=== PATIENT | female | born 1935 | race Caucasian/White ===

== ENCOUNTER 2017-06-15 23:50 | Inpatient (IN) ==
--- NOTE | 2017-06-15 23:59 | Emergency Department Note ---
Disposition Clinical Impression: Rigors UTI (urinary tract infection) Qualifiers: Urinary tract infection type: acute cystitis Hematuria presence: without hematuria Qualified Code(s): N30.00 - Acute cystitis without hematuria Fever Qualifiers: Fever type: unspecified Qualified Code(s): R50.9 - Fever, unspecified Disposition: Admitted As Inpatient Condition: Good Time of Disposition: 01:59 General Adult HPI - General Chief complaint: ED General Medical Stated complaint: muscle spasm Time Seen by Provider: 06/15/17 23:54 Source: patient, EMS Limitations: no limitations Nursing Notes Reviewed: Yes Vital Signs Reviewed: Yes - History of Present Illness HPI Narrative: Patient is an 81-year-old female presents to emergency department via EMS for shaking. She states that she was recently diagnosed with a urinary tract infection at her doctor's office today and was given Macrobid. She states that she has taken 2 doses. She took one dose at 2100 and then went to bed. She states that she then woke up shaking. Patient states that she had concern that it could be related to the Macrobid. Patient states that she has also been battling flu. - Related Data Home Medications Medication Instructions Recorded Confirmed Amlodipine Besylate [Amlodipine 10 mg PO DAILY 04/29/17 06/16/17 Besylate] Atorvastatin [Lipitor] 40 mg PO HS 04/29/17 06/16/17 Cyclobenzaprine [Flexeril] 5 mg PO HS PRN 04/29/17 06/16/17 Ferrous Sulfate 325 mg PO DAILY 04/29/17 06/16/17 Indapamide [Lozol] 1.25 mg PO DAILY 04/29/17 06/16/17 Loratadine [Allergy Relief] 10 mg PO DAILY 04/29/17 06/16/17 Losartan Potassium [Cozaar] 100 mg PO DAILY 04/29/17 06/16/17 Metformin HCl [Metformin HCl ER] 500 mg PO BID 04/29/17 06/16/17 Metoprolol XL (24 HR) Succ [Toprol 100 mg PO BID 04/29/17 06/16/17 XL] Omeprazole [PriLOSEC] 20 mg PO BID 04/29/17 06/16/17 Potassium Chloride 20 meq PO DAILY 04/29/17 06/16/17 Venlafaxine HCl [Venlafaxine HCl 75 mg PO DAILY 04/29/17 06/16/17 ER] Allergies Allergy/AdvReac Type Severity Reaction Status Date / Time TYRONE Inhibitors Allergy Swelling Verified 04/29/17 11:31 of Lip/Tongue/Throat Amoxicillin Allergy Itching Verified 04/29/17 11:31 codeine Allergy Vomiting Verified 04/29/17 11:31 enalapril Allergy Anaphylaxis Verified 04/29/17 11:31 nitrofurantoin Allergy Rash Verified 04/29/17 11:31 [From Macrobid] Sulfa (Sulfonamide Allergy Rash Verified 04/29/17 11:31 Antibiotics) All systems ED: reviewed and negative except as stated. Constitutional: Reports: other (Shaking) Cardiovascular: Denies: chest pain Respiratory: Denies: dyspnea Past Medical History - Past Medical History Medical history: Reports: atrial fibrillation, diabetes, hyperlipidemia, hypertension, other Surgical history: Reports: cholecystectomy, hysterectomy, pacemaker/AICD Psychiatric history: Reports: no psych history - Social History Smoking Status: Never smoker Smokeless Tobacco Status: No Alcohol use: Reports: occasionally Drug use: Reports: none Physical Exam - General Limitations: no limitations General appearance: alert, in no apparent distress - Head Head exam: atraumatic, normocephalic - Eye Eye exam: Present: normal appearance, EOMI - Neck Neck exam: Present: normal inspection, full ROM, trachea midline - Respiratory Respiratory exam: Present: normal lung sounds bilaterally. Absent: respiratory distress, wheezes - Cardiovascular Cardiovascular exam: Present: regular rate, normal rhythm, normal heart sounds, +S1, +S2 - Abdominal Exam Abdominal exam: Present: soft, Non-Tender, normal bowel sounds - Neurological Exam Neurological exam: Present: alert, oriented X3 - Psychiatric Psychiatric exam: Present: normal affect, normal mood - Skin Skin exam: Present: warm, dry, intact Course Vital Signs Temperature 100.7 F H 06/15/17 23:53 Pulse Rate 129 06/15/17 23:53 Respiratory Rate 20 06/15/17 23:53 Blood Pressure 145/103 06/15/17 23:53 O2 Sat by Pulse Oximetry 99 06/15/17 23:53 Temperature 99.1 F 06/19/17 07:39 Pulse Rate 80 06/19/17 07:39 Respiratory Rate 16 06/19/17 07:39 Blood Pressure 147/76 06/19/17 07:39 O2 Sat by Pulse Oximetry 96 06/19/17 07:39 Oxygen Delivery Oxygen Delivery Room Air Medical Decision Making - MDM Narrative Medical decision making narrative: Due the patient having shaking rigors and recent urinary tract infection will do a septic workup on this patient. His chest x-ray showed no acute process. There is no ischemic changes noted on the EKG. Analysis is positive for leukocyte esterase. Patient did have a white count of 14.6.. The patient will be started on a dose of Rocephin here in the emergency department. The patient has a troponin of 0.20. The patient denies any active chest pain and there were no ischemic changes on EKG. The patient will need to be admitted to the hospital for further evaluation and management. I have called and spoken with the hospitals name except of the patient to their service. The patient will be admitted at this time. - Lab Data Lab results reviewed: Yes I reviewed the patient's lab results. Result diagrams: 06/18/17 14:36 06/18/17 14:36 Lab Results 06/15/17 06/16/17 06/16/17 Range/Units 23:51 00:13 00:13 WBC 14.6 H (4.3-11.1) K/mcL RBC 4.53 (3.82-4.97) M/mcL Hgb 11.4 L (11.5-15.4) g/dL Hct 37.8 (35.3-44.9) % MCV 83.4 (83.0-100.0) fL MCH 25.2 L (28.0-33.3) pg MCHC 30.2 L (31.6-35.5) g/dL RDW 15.8 H (11.5-14.5) % Plt Count 369 (140-400) K/mcL MPV 10.0 (9.4-12.4) fL Immature Gran % 0.4 (0-4) % Seg Neutrophils % 88.2 % Lymphocytes % 7.3 % Monocytes % 3.8 % Eosinophils % 0.2 % Basophils % 0.1 % Neutrophils # 12.9 H (1.6-8.9) K/mcL Lymphocytes # 1.1 (0.6-4.6) K/mcL Monocytes # 0.6 (0.0-1.3) K/mcL Eosinophils # 0.0 (0.0-0.6) K/mcL Basophils # 0.0 (0.0-0.2) K/mcL PT 12.2 H (9.4-12.1) Seconds INR 1.1 APTT 26.4 (26.0-36.0) Seconds Sodium (136-145) mEq/L Potassium (3.5-5.1) mEq/L Chloride (98-107) mEq/L Carbon Dioxide (23-29) mEq/L BUN (8-23) mg/dL Creatinine (0.60-1.20) mg/dL Est GFR ( Amer) (> 60) Est GFR (Non-Af Amer) (> 60) BUN/Creatinine Ratio (6-26) Glucose (70-105) mg/dL Calculated Osmolality (280-300) Lactic Acid (0.5-2.2) mmol/L Calcium (8.6-10.3) mg/dL Phosphorus (2.7-4.5) mg/dL Magnesium (1.6-2.6) mg/dL Total Bilirubin (0.3-1.0) mg/dL Direct Bilirubin (0.0-0.2) mg/dL Indirect Bilirubin (0.0-1.2) mg/dL AST (13-39) Units/L ALT (7-52) Units/L Alkaline Phosphatase (34-104) Units/L Troponin I (< 0.04) ng/mL Serum Total Protein (6.4-8.9) g/dL Albumin (3.5-5.7) g/dL Globulin (2.4-3.5) g/dL Albumin/Globulin Ratio (1.1-2.2) Urine Color Yellow (Yellow) Urine Clarity Clear (Clear) Urine pH 6.5 (5.0-8.0) pH Units Ur Specific [place] 1.009 L (1.010-1.025) Urine Protein 100 H (Neg-Trace) mg/dL Urine Glucose (UA) Normal (Normal) mg/dL Urine Ketones Negative (Negative) mg/dL Urine Blood Small H (Negative) Urine Nitrite Negative (Negative) Urine Bilirubin Negative (Negative) Urine Urobilinogen Normal (Normal) mg/dL Ur Leukocyte Esterase Small H (Negative) Urine Microscopic RBC 0-3 (0-3) per hpf Urine Microscopic WBC 30-50 H (0-3) per hpf Ur Squamous Epith Cells Many H (None-Few) per lpf Urine Bacteria None Seen (None-Few) per hpf Hyaline Casts None Seen (None-Few) per lpf Ur Culture Indicated? NO. (NO) 06/16/17 06/16/17 06/16/17 Range/Units 00:13 00:13 00:13 WBC (4.3-11.1) K/mcL RBC (3.82-4.97) M/mcL Hgb (11.5-15.4) g/dL Hct (35.3-44.9) % MCV (83.0-100.0) fL MCH (28.0-33.3) pg MCHC (31.6-35.5) g/dL RDW (11.5-14.5) % Plt Count (140-400) K/mcL MPV (9.4-12.4) fL Immature Gran % (0-4) % Seg Neutrophils % % Lymphocytes % % Monocytes % % Eosinophils % % Basophils % % Neutrophils # (1.6-8.9) K/mcL Lymphocytes # (0.6-4.6) K/mcL Monocytes # (0.0-1.3) K/mcL Eosinophils # (0.0-0.6) K/mcL Basophils # (0.0-0.2) K/mcL PT (9.4-12.1) Seconds INR APTT (26.0-36.0) Seconds Sodium 136 (136-145) mEq/L Potassium 3.8 (3.5-5.1) mEq/L Chloride 100 (98-107) mEq/L Carbon Dioxide 25 (23-29) mEq/L BUN 17 (8-23) mg/dL Creatinine 1.03 (0.60-1.20) mg/dL Est GFR ( Amer) > 60 (> 60) Est GFR (Non-Af Amer) 52 L (> 60) BUN/Creatinine Ratio 17 (6-26) Glucose 133 H (70-105) mg/dL Calculated Osmolality 285 (280-300) Lactic Acid 3.2 H (0.5-2.2) mmol/L Calcium 8.9 (8.6-10.3) mg/dL Phosphorus 3.8 (2.7-4.5) mg/dL Magnesium 1.7 (1.6-2.6) mg/dL Total Bilirubin 0.3 (0.3-1.0) mg/dL Direct Bilirubin 0.1 (0.0-0.2) mg/dL Indirect Bilirubin 0.2 (0.0-1.2) mg/dL AST 36 (13-39) Units/L ALT 23 (7-52) Units/L Alkaline Phosphatase 100 (34-104) Units/L Troponin I 0.20 H* (< 0.04) ng/mL Serum Total Protein 7.6 (6.4-8.9) g/dL Albumin 3.5 (3.5-5.7) g/dL Globulin 4.1 H (2.4-3.5) g/dL Albumin/Globulin Ratio 0.9 L (1.1-2.2) Urine Color (Yellow) Urine Clarity (Clear) Urine pH (5.0-8.0) pH Units Ur Specific [place] (1.010-1.025) Urine Protein (Neg-Trace) mg/dL Urine Glucose (UA) (Normal) mg/dL Urine Ketones (Negative) mg/dL Urine Blood (Negative) Urine Nitrite (Negative) Urine Bilirubin (Negative) Urine Urobilinogen (Normal) mg/dL Ur Leukocyte Esterase (Negative) Urine Microscopic RBC (0-3) per hpf Urine Microscopic WBC (0-3) per hpf Ur Squamous Epith Cells (None-Few) per lpf Urine Bacteria (None-Few) per hpf Hyaline Casts (None-Few) per lpf Ur Culture Indicated? (NO) - Radiology Data Radiology results reviewed: Yes I reviewed the patient's radiology results. - EKG Data EKG #1 EKG attestation: Yes I reviewed and interpreted this EKG. EKG results narrative: EKG showed a sinus tachycardia at a rate of 101 bpm, MT interval of 174, curious rash and of 88, QTC of 387. This was compared to previous EKG on Attestation Statement - Attestation Attestation: I examined this patient and my medical decision-making was reviewed with the Resident Physician. I agree with the documented findings, disposition and treatment plan as described except to the extent set forth below. Patient presents to the ED was shaking. She called EMS complaining of muscle spasms. Briefly diagnosed with UTI and taken a couple doses of Macrobid. Does not think she has had a fever. No vomiting. On examination the patient has Conrado's. Abdomen soft. Lungs clear. Plan. Patient is febrile. Septic workup. Patient treated with IV antibiotics. Admitted to medicine pending blood cultures.
[2017-06-16 00:19] LABS: Bilirubin,Urine Negative (Negative); Blood,Urine Small (Negative); Clarity,Urine Clear (Clear); Color,Urine Yellow (Yellow); Glucose,Urine (UA) Normal (Normal); Ketones,Urine Negative (Negative); Leukocyte Esterase,Urine Small (Negative); Nitrite,Urine Negative (Negative); PH,Urine 6.5 pH Units (5.0-8.0); Protein,Urine 100 mg/dL (Neg-Trace); Specific Gravity,Urine 1.009 (1.010-1.025); Urobilinogen,Urine Normal (Normal)
[2017-06-16 00:26] LABS: Basophils % 0.1 %; Eosinophils % 0.2 %; Hematocrit 37.8 % (35.3-44.9); Hemoglobin 11.4 g/dL (11.5-15.4); Immature Granulocytes % 0.4 % (0-4); Lymphocytes # 1.1 K/mcL (0.6-4.6); Lymphocytes % 7.3 %; Mean Corpuscular HGB Conc 30.2 g/dL (31.6-35.5); Mean Corpuscular Hemoglobin 25.2 pg (28.0-33.3); Mean Corpuscular Volume 83.4 fL (83.0-100.0); Monocytes # 0.6 K/mcL (0.0-1.3); Monocytes % 3.8 %; Neutrophils # 12.9 K/mcL (1.6-8.9); Platelet Count 369 K/mcL (140-400); Red Blood Count 4.53 M/mcL (3.82-4.97); Red Cell Distribution Width 15.8 % (11.5-14.5); Segmented Neutrophils % 88.2 %
[2017-06-16 00:27] LABS: Bacteria,Urine None Seen per hpf (None-Few); Hyaline Casts,Urine None Seen per lpf (None-Few); RBC,Urine 0-3 per hpf (0-3); Squamous Epithelial Cell,Urine Many per lpf (None-Few); WBC,Urine 30-50 per hpf (0-3)
[2017-06-16] MEDS ORDERED: Ondansetron 4 MG/2 ML VIAL IVP ONE ×3 (00:32→02:59)
[2017-06-16 00:35] LABS: INR 1.1; Prothrombin Time 12.2 Seconds (9.4-12.1)
[2017-06-16 00:37] LABS: Activated Partial Thrombo Time 26.4 Seconds (26.0-36.0)
[2017-06-16 00:53] LABS: Alanine Aminotransferase 23 Units/L (7-52); Albumin 3.5 g/dL (3.5-5.7); Albumin/Globulin Ratio 0.9 (1.1-2.2); Alkaline Phosphatase 100 Units/L (34-104); Aspartate Amino Transferase 36 Units/L (13-39); BUN/Creatinine Ratio 17 (6-26); Bilirubin,Direct 0.1 mg/dL (0.0-0.2); Bilirubin,Indirect 0.2 mg/dL (0.0-1.2); Bilirubin,Total 0.3 mg/dL (0.3-1.0); Blood Urea Nitrogen 17 mg/dL (8-23); Calcium 8.9 mg/dL (8.6-10.3); Carbon Dioxide 25 mEq/L (23-29); Chloride 100 mEq/L (98-107); Globulin 4.1 g/dL (2.4-3.5); Glucose 133 mg/dL (70-105); Magnesium 1.7 mg/dL (1.6-2.6); Osmolality,Calculated 285 (280-300); Phosphorous 3.8 mg/dL (2.7-4.5); Potassium 3.8 mEq/L (3.5-5.1); Sodium 136 mEq/L (136-145); Total Protein 7.6 g/dL (6.4-8.9); eGFR For African Americans > 60 (> 60); eGFR For Non-African Americans 52 (> 60)
[2017-06-16] MEDS ORDERED: Aspirin 81 MG TAB.CHEW PO ONE (01:49)
[2017-06-16] MEDS ORDERED: cefTRIAXone 1,000 MG in Water for inj. (sterile) 20 ML 10 ML IVPB ONE (02:00)
--- NOTE | 2017-06-16 03:01 | Internal Med History&Physical ---
Date of Encounter: 06/16/17 Time of Encounter: 02:45 Assessment and Plan (1) Sepsis Current visit: Yes Status: Suspected Patient presenting with sepsis. Lactic acid elevated. Tachycardic. Febrile. Will treat with intravenous antibiotics, IV fluids. Follow culture results. Trend lactic acid. High risk for complications. Qualifiers: Sepsis type: Escherichia coli Qualified Code(s): A41.51 - Sepsis due to Escherichia coli [E. coli] (2) UTI (urinary tract infection) Current visit: Yes Status: Acute Patient presenting with dysuria. Was treated with Macrobid prior to coming to the ER. Repeat urine culture. Qualifiers: Urinary tract infection type: acute cystitis Hematuria presence: without hematuria Qualified Code(s): N30.00 - Acute cystitis without hematuria (3) Essential hypertension Current visit: Yes Status: Chronic Monitor blood pressure. Resume home medications. (4) Diabetes mellitus Current visit: Yes Status: Chronic Place patient on sliding scale insulin and diabetic diet. Monitor blood sugars. Qualifiers: Diabetes mellitus type: type 2 Diabetes mellitus complication status: without complication Diabetes mellitus correction insulin use: without rat exterminator use Qualified Code(s): E11.9 - Type 2 diabetes mellitus without complications (5) Elevated troponin Current visit: Yes Status: Acute Patient is mildly elevated troponin at 0.2. Could be related to sepsis and demand ischemia. We will trend troponins. Get 2-D echocardiogram. (6) DVT prophylaxis Current visit: Yes Status: Acute With subcutaneous heparin Internal Medicine - H&P: HPI Chief complaint: Fever, rigors, nausea Admitted From: Emergency Dept Plans for Post Hospital Care: Home History of present illness: Ms. Kate is a 81 year old female patient with a past medical history of diabetes mellitus, essential hypertension, status post permanent pacemaker presented to the ER with complaints of nausea, fever along with chills and rigors. Symptoms began 2 days back with nausea. She went to urgent care this morning and was told that she had urinary tract infection and prescribed Macrobid. She is allergic to Macrobid but did take it yesterday evening and went to bed. She woke up with rigors and decided to come to the ER here. She does continue to feel sick with nausea. She does describe mild suprapubic pain and dysuria. No cough or shortness of breath. Past Med Surg Social Fam HX - Past Medical History Attestation: Yes The following information was validated with the patient. Source: patient Medical history: atrial fibrillation, diabetes, hyperlipidemia, hypertension, other Psychiatric history: anxiety, depression - Past Surgical History Surgical History: cholecystectomy, hysterectomy, pacemaker/AICD - Social History Smoking Status: Never smoker Smokeless Tobacco Status: No Alcohol use: occasionally Drug use: none - Additional Family History Additional family history: Reviewed and found to be noncontributory at this time Internal Medicine - H&P: Meds Amlodipine Besylate [Amlodipine Besylate] 10 mg PO DAILY 04/29/17 [History] Aspirin 81 mg PO DAILY 04/29/17 [History] Atorvastatin [Lipitor] 40 mg PO HS 04/29/17 [History] Atorvastatin [Lipitor] 40 mg PO HS 04/29/17 [History] Cyclobenzaprine [Flexeril] 5 mg PO HS PRN 04/29/17 [History] Ferrous Sulfate 325 mg PO DAILY 04/29/17 [History] Indapamide [Lozol] 1.25 mg PO DAILY 04/29/17 [History] Loratadine [Allergy Relief] 10 mg PO DAILY 04/29/17 [History] Losartan Potassium [Cozaar] 100 mg PO DAILY 04/29/17 [History] Metformin HCl [Metformin HCl ER] 500 mg PO BID 04/29/17 [History] Metoprolol XL (24 HR) Succ [Toprol XL] 100 mg PO BID 04/29/17 [History] Omeprazole [PriLOSEC] 20 mg PO BID 04/29/17 [History] Potassium Chloride 20 meq PO DAILY 04/29/17 [History] Venlafaxine HCl [Venlafaxine HCl ER] 75 mg PO DAILY 04/29/17 [History] 3 Allergy/AdvReac Type Severity Reaction Status Date / Time TYRONE Inhibitors Allergy Swelling Verified 04/29/17 11:31 of Lip/Tongue/Throat Amoxicillin Allergy Itching Verified 04/29/17 11:31 codeine Allergy Vomiting Verified 04/29/17 11:31 enalapril Allergy Anaphylaxis Verified 04/29/17 11:31 nitrofurantoin Allergy Rash Verified 04/29/17 11:31 [From Macrobid] Sulfa (Sulfonamide Allergy Rash Verified 04/29/17 11:31 Antibiotics) All Systems PM: A 10-system review of systems was performed and is negative for pertinent findings except as documented above in the HPI. - Constitutional Constitutional: chills, fever(s), no night sweats - EENT Eyes: no change in vision, no discharge, no pain, no photophobia Ears: no ear discharge, no ear pain, no tinnitus Nose, mouth and throat: no dysphagia, no nasal discharge, no neck pain, no sore throat - Cardiovascular Cardiovascular ROS IM: no chest pain, no diaphoresis, no dyspnea, no lightheadedness, no palpitations, no syncope - Respiratory Respiratory: no cough, no dyspnea, no wheezing, no excessive phlegm production - Gastrointestinal Gastrointestinal: no abdominal pain, no diarrhea, no hematemesis, no hematochezia, no melena, no nausea, no vomiting - Genitourinary Genitourinary: dysuria, no change in urinary stream, no flank pain, no hematuria - Musculoskeletal Musculoskeletal ROS IM: no numbness, no tingling - Integumentary Integumentary IM: no rash, no unusual bruising - Neurological Neurological ROS: no confusion, no convulsions, no focal weakness, no numbness, no tingling, no tremor(s) - Hematologic/Lymphatic Hematologic/Lymphatic: no easy bruising - Constitutional Vitals: Temp Pulse Resp BP Pulse Ox 100.7 F H 114 18 166/75 91 06/16/17 02:40 06/16/17 02:40 06/16/17 02:40 06/16/17 02:40 06/16/17 02:40 General appearance: Present: cooperative, mild distress, A&O X 3, answers questions appropriately - Neck Neck exam general surgery: Present: supple, trachea midline. Absent: lymphadenopathy - Cardiovascular Cardiovascular exam: Present: RRR, +S1, +S2, tachycardia. Absent: diastolic murmur, gallop, rubs, systolic murmur - GI/Abdominal GI/Abdominal exam: Present: normal bowel sounds, soft, no peritoneal signs. Absent: distended, tenderness - Extremities Exam Extremities exam: Present: warm, radial pulses palpable and symmetrical. Absent : calf tenderness, cyanotic, pedal edema - Neurological Exam Neurological exam: Present: alert, oriented X3, no focal deficits. Absent: facial droop, speech deficit - Skin Skin exam: Present: dry, intact Internal Med - H&P Results - Labs CBC & Chem 7: 06/16/17 00:13 06/16/17 00:13
[2017-06-16] MEDS: 0.9 % Sodium Chloride 1,000 ML IVC SCH ×5 (03:04→13:59)
[2017-06-16] MEDS ORDERED: Dextrose Gel 15 GM/37.5 ML TUBE PO PRN ×2 (03:07)
[2017-06-16] MEDS ORDERED: *HR* Dextrose 50 % in Water (Syg) 50 ML SYRINGE IVP PRN (03:07)
[2017-06-16] MEDS ORDERED: D5% in Water 1,000 ML IVC PRN (03:07)
[2017-06-16] MEDS ORDERED: Venlafaxine XR (24 HR) 75 MG CAP.ER.24H PO SCH (03:30)
[2017-06-16 03:57] LABS: Hemoglobin A1C 5.8 %
[2017-06-16 04:38] LABS: Adenovirus Not Detected (Not Detect); Bordetella Pertussis Not Detected (Not Detect); Chlamydophila pneumoniae Not Detected (Not Detect); Coronavirus 229E Not Detected (Not Detect); Coronavirus HKU1 Not Detected (Not Detect); Coronavirus NL63 Not Detected (Not Detect); Coronavirus OC43 Not Detected (Not Detect); Human Metapneumovirus Not Detected (Not Detect); Human Rhinovirus/Enterovirus Not Detected (Not Detect); Influenza A Subtype 2009 H1 Not Detected (Not Detect); Influenza A Untypeable Not Detected (Not Detect); Influenza B Not Detected (Not Detect); Mycoplasma pneumoniae Not Detected (Not Detect); Parainfluenza Virus 1 Not Detected (Not Detect); Parainfluenza Virus 2 Not Detected (Not Detect); Parainfluenza Virus 3 Not Detected (Not Detect); Parainfluenza Virus 4 Not Detected (Not Detect); Respiratory Syncytial Virus Not Detected (Not Detect)
[2017-06-16] MEDS: *HR* Heparin 5,000 UNIT/ML VIAL SQ SCH ×2 (05:47→18:02)
[2017-06-16] MEDS ORDERED: Ondansetron 4 MG/2 ML VIAL IVP PRN (07:47)
[2017-06-16] MEDS ORDERED: Acetaminophen 650 MG RECTAL SUPP RC PRN (07:48)
[2017-06-16] MEDS ORDERED: Ondansetron 4 MG/2 ML VIAL ONE (07:49)
[2017-06-16] MEDS: Insulin LISPRO 300 UNITS/3 ML VIAL SQ SCH ×4 (08:01→22:06)
[2017-06-16] MEDS ORDERED: *HR* Promethazine 25 MG/ML VIAL ONE (09:09)
[2017-06-16] MEDS: *HR* Promethazine 25 MG/ML VIAL IVP PRN ×3 (09:20→19:44)
--- NOTE | 2017-06-16 11:03 | Internal Med Progress Note ---
Date of Encounter: 06/16/17 Time of Encounter: 09:00 - Assessment and plan (1) UTI (urinary tract infection) Current Visit: Yes Status: Acute Assessment and plan: Patient is day #1 IV Rocephin Lactic acid is normal at 1.4 She continues to have fevers and tachycardia clinically states she feels better. Blood pressure stable. Awaiting blood cultures and urine culture. Continue supportive care. IV fluids. Close monitoring. Qualifiers: Urinary tract infection type: acute cystitis Hematuria presence: without hematuria Qualified Code(s): N30.00 - Acute cystitis without hematuria (2) Sepsis Current Visit: Yes Status: Suspected Assessment and plan: See treatment as outlined above Qualifiers: Sepsis type: sepsis due to unspecified organism Qualified Code(s): A41.9 - Sepsis, unspecified organism (3) Essential hypertension Current Visit: Yes Status: Chronic Assessment and plan: Blood pressure is currently controlled. Monitor. She is not on any antihypertensives. (4) Diabetes mellitus Current Visit: Yes Status: Chronic Assessment and plan: Blood sugars remain under reasonable control. Continue corrective insulin as necessary. A1c 5.8. Qualifiers: Diabetes mellitus type: type 2 Diabetes mellitus complication status: without complication Diabetes mellitus ferry terminal agent insulin use: without retirement use Qualified Code(s): E11.9 - Type 2 diabetes mellitus without complications (5) Elevated troponin Current Visit: Yes Status: Acute Assessment and plan: Troponins are elevated. Patient without chest pain. No history of coronary artery disease. I will place her on aspirin. If continue to rise will consult cardiology. This may be demand ischemia. An echocardiogram is ordered. Repeat EKG ordered. (6) DVT prophylaxis Current Visit: Yes Status: Acute Assessment and plan: Lovenox Sub Q - Time Spent With Patient 25 - 35 minutes - Subjective Interval history: My partners earlier history and physical is appreciated: CC: Weakness HPI:Ms. Kate is a 81 year old female patient with a past medical history of diabetes mellitus, essential hypertension, status post permanent pacemaker presented to the ER with complaints of nausea, fever along with chills and rigors. Symptoms began 2 days back with nausea. She went to urgent care this morning and was told that she had urinary tract infection and prescribed Macrobid. She is allergic to Macrobid but did take it yesterday evening and went to bed. She woke up with rigors and decided to come to the ER here. She does continue to feel sick with nausea. She does describe mild suprapubic pain and dysuria. No cough or shortness of breath. 06/16: Patient states she feels somewhat better today. She continues to have nausea and is requesting a different antiemetic. She continues to experience fevers and chills he denies any abdominal pain or dysuria. No dysuria. No chest pain or shortness of breath. She is day 1 of IV Rocephin, and continues with IV fluids for sepsis due to urinary tract infection. - Constitutional Vitals: Temp Pulse Resp BP Pulse Ox 100.9 F H 112 18 144/86 92 06/16/17 08:51 06/16/17 07:21 06/16/17 07:21 06/16/17 07:21 06/16/17 10:23 General appearance: Present: cooperative, mild distress, A&O X 3, answers questions appropriately Exam: Pt is ill-appearing - Head Head exam: Present: atraumatic, normocephalic - Eye Eye exam: Present: conjuntiva pink, sclera anicteric - ENT ENT exam: Present: mucous membranes dry - Neck Neck exam general surgery: Present: supple, trachea midline. Absent: lymphadenopathy - Respiratory Respiratory exam: Present: CTAB. Absent: accessory muscle use, rales, rhonchi, wheezes - Cardiovascular Cardiovascular exam: Present: +S1, +S2, tachycardia. Absent: diastolic murmur, gallop, rubs, systolic murmur - GI/Abdominal GI/Abdominal exam: Present: normal bowel sounds, soft, no peritoneal signs. Absent: distended, tenderness - Extremities Exam Extremities exam: Present: warm, radial pulses palpable and symmetrical. Absent : calf tenderness, cyanotic, pedal edema - Neurological Exam Neurological exam: Present: CN II-XII intact, oriented X3, no focal deficits. Absent: pronater drift, facial droop, speech deficit - Skin Skin exam: Present: dry, intact, warm (Capillary refill less than 2.5 second) Internal Medicine: Result - Labs CBC & Chem 7: 06/16/17 00:13 06/16/17 00:13 Labs: Cardiac Enzymes 06/16/17 Range/Units 03:22 Troponin I 0.30 H* (< 0.04) ng/mL - ABG Interpretation ABG results: PT/INR, D-dimer PT 12.2 Seconds (9.4-12.1) H 06/16/17 00:13 Consult Discharge Plan - Plan Referrals: Shmuel Leggett MD [Primary Care Provider] -
[2017-06-16] MEDS: Aspirin 81 MG TAB.CHEW PO SCH (12:32)
[2017-06-16] MEDS: Venlafaxine XR (24 HR) 75 MG CAP.ER.24H PO SCH (12:32)
[2017-06-16] MEDS: Acetaminophen 325 MG TABLET PO PRN ×2 (13:58→19:44)
[2017-06-16] MEDS ORDERED: *HR* Promethazine 25 MG/ML VIAL IVP ONE (16:18)
[2017-06-16] MEDS ORDERED: Metoclopramide 10 MG/2 ML VIAL IVP PRN (18:00)
[2017-06-17] MEDS: 0.9 % Sodium Chloride 1,000 ML IVC SCH ×2 (00:57→11:57)
[2017-06-17] MEDS: *HR* Promethazine 25 MG/ML VIAL IVP PRN ×3 (02:40→18:10)
[2017-06-17] MEDS: Acetaminophen 325 MG TABLET PO PRN ×2 (02:43→09:51)
[2017-06-17] MEDS: cefTRIAXone 2,000 MG in Water for inj. (sterile) 20 ML 20 ML IVP SCH (02:44)
[2017-06-17 04:40] LABS: Basophils % 0.1 %; Eosinophils % 0.1 %; Hematocrit 29.7 % (35.3-44.9); Immature Granulocytes % 0.6 % (0-4); Lymphocytes # 0.6 K/mcL (0.6-4.6); Mean Corpuscular Hemoglobin 25.3 pg (28.0-33.3); Mean Corpuscular Volume 81.8 fL (83.0-100.0); Mean Platelet Volume 10.4 fL (9.4-12.4); Monocytes # 0.8 K/mcL (0.0-1.3); Monocytes % 5.7 %; Neutrophils # 12.3 K/mcL (1.6-8.9); Platelet Count 237 K/mcL (140-400); Red Blood Count 3.63 M/mcL (3.82-4.97); Red Cell Distribution Width 15.8 % (11.5-14.5); Segmented Neutrophils % 89.5 %
[2017-06-17 04:44] LABS: Hemoglobin 9.2 g/dL (11.5-15.4)
[2017-06-17 05:14] LABS: BUN/Creatinine Ratio 14 (6-26); Blood Urea Nitrogen 10 mg/dL (8-23); Calcium 8.1 mg/dL (8.6-10.3); Carbon Dioxide 24 mEq/L (23-29); Chloride 103 mEq/L (98-107); Glucose 147 mg/dL (70-105); Osmolality,Calculated 282 (280-300); Potassium 3.2 mEq/L (3.5-5.1); Sodium 135 mEq/L (136-145); eGFR For African Americans > 60 (> 60); eGFR For Non-African Americans > 60 (> 60)
[2017-06-17] MEDS: *HR* Heparin 5,000 UNIT/ML VIAL SQ SCH ×2 (06:59→18:10)
[2017-06-17] MEDS: Insulin LISPRO 300 UNITS/3 ML VIAL SQ SCH ×4 (09:47→23:04)
[2017-06-17] MEDS: Venlafaxine XR (24 HR) 75 MG CAP.ER.24H PO SCH (09:48)
[2017-06-17] MEDS: Aspirin 81 MG TAB.CHEW PO SCH (09:48)
--- NOTE | 2017-06-17 22:42 | Internal Med Progress Note ---
Date of Encounter: 06/17/17 Time of Encounter: 10:40 - Assessment and plan (1) UTI (urinary tract infection) Current Visit: Yes Status: Acute Assessment and plan: Patient is day #2 IV Rocephin Lactic acid is normal at 1.4 She continues to have fevers and tachycardia clinically states she feels better. Blood pressure stable. Awaiting blood cultures and urine culture. Continue supportive care. IV fluids. Close monitoring. Qualifiers: Urinary tract infection type: acute cystitis Hematuria presence: without hematuria Qualified Code(s): N30.00 - Acute cystitis without hematuria (2) Sepsis Current Visit: Yes Status: Suspected Assessment and plan: See treatment as outlined above Qualifiers: Sepsis type: sepsis due to unspecified organism Qualified Code(s): A41.9 - Sepsis, unspecified organism (3) Essential hypertension Current Visit: Yes Status: Chronic Assessment and plan: Blood pressure is currently controlled. Monitor. She is not on any antihypertensives. (4) Diabetes mellitus Current Visit: Yes Status: Chronic Assessment and plan: Blood sugars remain under reasonable control. Continue corrective insulin as necessary. A1c 5.8. Qualifiers: Diabetes mellitus type: type 2 Diabetes mellitus complication status: without complication Diabetes mellitus tank terminal gauger insulin use: without penitentiary use Qualified Code(s): E11.9 - Type 2 diabetes mellitus without complications (5) Elevated troponin Current Visit: Yes Status: Acute Assessment and plan: Troponins are elevated. Patient without chest pain. No history of coronary artery disease. I will place her on aspirin. If continue to rise will consult cardiology. This may be demand ischemia. An echocardiogram is ordered. Repeat EKG ordered. (6) DVT prophylaxis Current Visit: Yes Status: Acute Assessment and plan: Lovenox Sub Q - Subjective Interval history: Ms. Kate is a 81 year old female patient with a past medical history of diabetes mellitus, essential hypertension, status post permanent pacemaker presented to the ER with complaints of nausea, fever along with chills and rigors. Symptoms began 2 days back with nausea. She went to urgent care this morning and was told that she had urinary tract infection and prescribed Macrobid. She is allergic to Macrobid but did take it yesterday evening and went to bed. She woke up with rigors and decided to come to the ER here. She does continue to feel sick with nausea. She does describe mild suprapubic pain and dysuria. No cough or shortness of breath. 06/16: Patient states she feels somewhat better today. She continues to have nausea and is requesting a different antiemetic. She continues to experience fevers and chills he denies any abdominal pain or dysuria. No dysuria. No chest pain or shortness of breath. She is day 1 of IV Rocephin, and continues with IV fluids for sepsis due to urinary tract infection. 06/17: Patient feels better, no longer with rigors and overall feels well. - Constitutional Vitals: Temp Pulse Resp BP Pulse Ox 98.6 F 86 16 155/72 97 06/17/17 20:54 06/17/17 20:54 06/17/17 20:54 06/17/17 20:54 06/17/17 20:54 General appearance: Present: cooperative, A&O X 3, no acute distress, answers questions appropriately Exam: - Head Head exam: Present: atraumatic, normocephalic - Eye Eye exam: Present: conjuntiva pink, sclera anicteric - ENT ENT exam: Present: mucous membranes dry - Neck Neck exam general surgery: Present: supple, trachea midline. Absent: lymphadenopathy - Respiratory Respiratory exam: Present: CTAB. Absent: accessory muscle use, rales, rhonchi, wheezes - Cardiovascular Cardiovascular exam: Present: +S1, +S2, tachycardia. Absent: diastolic murmur, gallop, rubs, systolic murmur - GI/Abdominal GI/Abdominal exam: Present: normal bowel sounds, soft, no peritoneal signs. Absent: distended, tenderness - Extremities Exam Extremities exam: Present: warm, radial pulses palpable and symmetrical. Absent : calf tenderness, cyanotic, pedal edema - Neurological Exam Neurological exam: Present: CN II-XII intact, oriented X3, no focal deficits. Absent: pronater drift, facial droop, speech deficit - Skin Skin exam: Present: dry, intact, warm (Capillary refill less than 2.5 second) Internal Medicine: Result - Labs CBC & Chem 7: 06/17/17 04:05 06/17/17 04:05 Labs: Short CBC 06/17/17 Range/Units 04:05 WBC 13.8 H (4.3-11.1) K/mcL Hgb 9.2 L D (11.5-15.4) g/dL Hct 29.7 L (35.3-44.9) % Plt Count 237 (140-400) K/mcL Neutrophils # 12.3 H (1.6-8.9) K/mcL BMP 06/17/17 04:05 Sodium 135 L Potassium 3.2 L Chloride 103 Carbon Dioxide 24 BUN 10 Creatinine 0.73 Glucose 147 H Calcium 8.1 L Cardiac Enzymes 06/17/17 Range/Units 04:05 Troponin I 0.13 H* (< 0.04) ng/mL - ABG Interpretation ABG results: PT/INR, D-dimer PT 12.2 Seconds (9.4-12.1) H 06/16/17 00:13 - Impressions Impressions Echocardiogram 06/17/17 03:18 Impressions: LVEF 60-65%. Mild left ventricular diastolic dysfunction. Normal right ventricular structure and function. Mild mitral regurgitation. Mild tricuspid regurgitation. Mild pulmonary hypertension. Left Ventricular Wall Motion: Rest Echo Findings All wall segments showed normal motion. Findings: Study Quality * Technically adequate exam. ECG Findings * Normal sinus rhythm. Left Ventricle * LVEF 60-65%. * Normal LV chamber size, wall thickness and function. * Mild left ventricular diastolic dysfunction. Right Ventricle * Normal right ventricular structure and function. Left Atrium * Normal left atrial size. Right Atrium * Normal right atrial size. Aortic Valve * No aortic regurgitation. * Trileaflet aortic valve. * No aortic stenosis. Mitral Valve * Normal mitral valve structure. * No mitral stenosis. * Mild mitral regurgitation. Tricuspid Valve * Tricuspid valve not well visualized. * Mild tricuspid regurgitation. * Estimated RA pressure is 3 mmHg. * Estimated RVSP is 41 mmHg. * Mild pulmonary hypertension. Pulmonic Valve * Pulmonic valve is not well visualized. * No pulmonic stenosis. * No pulmonic regurgitation. Pulmonary Artery * Pulmonary artery not well visualized. Aorta * Not well visualized. Pericardium * There is no pericardial effusion present. Device lead * A device lead was visualized in the right atrium and right ventricle. Interatrial Septum * No evidence of PFO by color Doppler. IVC * Normal IVC dimensions and inspiratory collapse. - VTE Documentation of Mechanical Device: Graduated compression elastic hosiery Consult Discharge Plan - Plan Referrals: Shmuel Leggett MD [Primary Care Provider] -
[2017-06-18] MEDS: cefTRIAXone 2,000 MG in Water for inj. (sterile) 20 ML 20 ML IVP SCH (02:56)
[2017-06-18] MEDS: Acetaminophen 325 MG TABLET PO PRN ×2 (04:43→15:16)
[2017-06-18] MEDS: *HR* Promethazine 25 MG/ML VIAL IVP PRN (04:43)
[2017-06-18] MEDS: *HR* Heparin 5,000 UNIT/ML VIAL SQ SCH ×2 (04:44→17:35)
[2017-06-18] MEDS: Insulin LISPRO 300 UNITS/3 ML VIAL SQ SCH ×4 (07:57→21:45)
[2017-06-18] MEDS: Venlafaxine XR (24 HR) 75 MG CAP.ER.24H PO SCH (08:32)
[2017-06-18] MEDS: Aspirin 81 MG TAB.CHEW PO SCH (08:32)
[2017-06-18] MEDS: 0.9 % Sodium Chloride 1,000 ML IVC SCH ×2 (12:12→12:13)
[2017-06-18 15:09] LABS: Basophils % 0.3 %; Eosinophils # 0.1 K/mcL (0.0-0.6); Eosinophils % 1.6 %; Hematocrit 33.3 % (35.3-44.9); Hemoglobin 10.2 g/dL (11.5-15.4); Immature Granulocytes % 0.4 % (0-4); Lymphocytes # 1.7 K/mcL (0.6-4.6); Lymphocytes % 22.3 %; Mean Corpuscular HGB Conc 30.6 g/dL (31.6-35.5); Mean Corpuscular Hemoglobin 25.2 pg (28.0-33.3); Mean Corpuscular Volume 82.4 fL (83.0-100.0); Mean Platelet Volume 10.3 fL (9.4-12.4); Monocytes # 0.7 K/mcL (0.0-1.3); Monocytes % 9.4 %; Platelet Count 274 K/mcL (140-400); Red Blood Count 4.04 M/mcL (3.82-4.97); Red Cell Distribution Width 15.6 % (11.5-14.5)
[2017-06-18 15:34] LABS: BUN/Creatinine Ratio 15 (6-26); Blood Urea Nitrogen 13 mg/dL (8-23); Calcium 8.9 mg/dL (8.6-10.3); Carbon Dioxide 30 mEq/L (23-29); Chloride 96 mEq/L (98-107); Glucose 95 mg/dL (70-105); Osmolality,Calculated 276 (280-300); Potassium 3.2 mEq/L (3.5-5.1); Sodium 133 mEq/L (136-145); eGFR For African Americans > 60 (> 60); eGFR For Non-African Americans > 60 (> 60)
[2017-06-18] MEDS: amLODIPine 5 MG TABLET PO SCH (16:09)
[2017-06-18] MEDS: Loratadine 10 MG TABLET PO SCH (16:10)
[2017-06-18] MEDS: Metoprolol XL (24 HR) Succ 50 MG TAB.ER.24H PO SCH ×2 (16:11→21:04)
--- NOTE | 2017-06-18 17:21 | Electrocardiograph Report ---
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
--- NOTE | 2017-06-18 17:26 | Electrocardiograph Report ---
[address] [address] Test Date: 2017-06-16 Pat Name: Daisy Kaet Department: 111 Room: [facility] Gender: F Hand Therapist: [id number] : 1935 Requested By: Ari Perez Order Number: [id number] Reading MD: Farhad Swan Measurements Intervals [place] Rate: 76 P: 60 CA: 185 QRS: 12 QRSD: 103 T: 49 QT: 418 QTc: 449 Interpretive Statements SINUS RHYTHM WITH OCCASIONAL VENTRICULAR PREMATURE COMPLEXES Electronically Signed On 06-18-2017 17:24:58 EST by Farhad Swan
[2017-06-18] MEDS ORDERED: Metoprolol XL (24 HR) Succ 50 MG TAB.ER.24H PO SCH (21:00)
[2017-06-18] MEDS: *HR* Metformin 500 MG TABLET PO SCH (21:05)
[2017-06-19] MEDS: cefTRIAXone 2,000 MG in Water for inj. (sterile) 20 ML 20 ML IVP SCH (03:19)
[2017-06-19] MEDS: *HR* Heparin 5,000 UNIT/ML VIAL SQ SCH (06:25)
[2017-06-19] MEDS ORDERED: Loratadine 10 MG TABLET PO SCH (09:00)
[2017-06-19] MEDS ORDERED: amLODIPine 5 MG TABLET PO SCH (09:00)
[2017-06-19] MEDS: Metoprolol XL (24 HR) Succ 50 MG TAB.ER.24H PO SCH (10:26)
[2017-06-19] MEDS: Aspirin 81 MG TAB.CHEW PO SCH (10:26)
[2017-06-19] MEDS: Insulin LISPRO 300 UNITS/3 ML VIAL SQ SCH (10:26)
[2017-06-19] MEDS: Venlafaxine XR (24 HR) 75 MG CAP.ER.24H PO SCH (10:27)
[2017-06-19] MEDS: Loratadine 10 MG TABLET PO SCH (10:27)
[2017-06-19] MEDS: *HR* Metformin 500 MG TABLET PO SCH (10:27)
[2017-06-19] MEDS: amLODIPine 5 MG TABLET PO SCH (10:27)
--- NOTE | 2017-06-19 12:20 | Internal Med Progress Note ---
Date of Encounter: 06/19/17 Time of Encounter: 12:19 - Assessment and plan (1) Sepsis Current Visit: Yes Status: Suspected Assessment and plan: Secondary to UTI, continue Rocephin, tele monitoring. IV fluids as needed. Follow-up blood and urine cultures, currently NGTD. Qualifiers: Sepsis type: sepsis due to unspecified organism Qualified Code(s): A41.9 - Sepsis, unspecified organism (2) UTI (urinary tract infection) Current Visit: Yes Status: Acute Assessment and plan: Continue Rocephin Lactic acid is normal at 1.4 She continues to have fevers and tachycardia clinically states she feels better. Blood pressure stable. Awaiting blood cultures and urine culture. Continue supportive care. IV fluids. Close monitoring. Qualifiers: Urinary tract infection type: acute cystitis Hematuria presence: without hematuria Qualified Code(s): N30.00 - Acute cystitis without hematuria (3) Essential hypertension Current Visit: Yes Status: Chronic Assessment and plan: Blood pressure is currently controlled. Monitor. She is not on any antihypertensives. (4) Diabetes mellitus Current Visit: Yes Status: Chronic Assessment and plan: Blood sugars remain under reasonable control. Continue corrective insulin as necessary. A1c 5.8. Qualifiers: Diabetes mellitus type: type 2 Diabetes mellitus complication status: without complication Diabetes mellitus intermodal customer service insulin use: without senior care use Qualified Code(s): E11.9 - Type 2 diabetes mellitus without complications (5) Elevated troponin Current Visit: Yes Status: Acute Assessment and plan: Troponins are elevated. Patient without chest pain. No history of coronary artery disease. Likely demand ischemia An echocardiogram was unremarkable with normal LVEF Repeat EKG ordered. (6) DVT prophylaxis Current Visit: Yes Status: Acute Assessment and plan: Lovenox Sub Q - Subjective Interval history: Ms. Kate is a 81 year old female patient with a past medical history of diabetes mellitus, essential hypertension, status post permanent pacemaker presented to the ER with complaints of nausea, fever along with chills and rigors. Symptoms began 2 days back with nausea. She went to urgent care this morning and was told that she had urinary tract infection and prescribed Macrobid. She is allergic to Macrobid but did take it yesterday evening and went to bed. She woke up with rigors and decided to come to the ER here. She does continue to feel sick with nausea. She does describe mild suprapubic pain and dysuria. No cough or shortness of breath. Has been feeling great since treatment with Rocephin. - Constitutional Vitals: Temp Pulse Resp BP Pulse Ox 98.7 F 74 18 149/105 98 06/19/17 10:56 06/19/17 10:56 06/19/17 10:56 06/19/17 10:56 06/19/17 10:56 General appearance: Present: cooperative, A&O X 3, no acute distress, answers questions appropriately - Head Head exam: Present: atraumatic, normocephalic - Eye Eye exam: Present: PERRL, conjuntiva pink, sclera anicteric Pupils: Present: PERRL - Neck Neck exam general surgery: Present: supple, trachea midline. Absent: lymphadenopathy - Respiratory Respiratory exam: Present: CTAB. Absent: accessory muscle use, rales, rhonchi, wheezes - Cardiovascular Cardiovascular exam: Present: RRR, +S1, +S2. Absent: diastolic murmur, gallop, rubs, systolic murmur - GI/Abdominal GI/Abdominal exam: Present: normal bowel sounds, soft, no peritoneal signs. Absent: distended, tenderness - Extremities Exam Extremities exam: Present: warm, radial pulses palpable and symmetrical. Absent : calf tenderness, cyanotic, pedal edema - Neurological Exam Neurological exam: Present: CN II-XII intact, oriented X3, no focal deficits. Absent: pronater drift, facial droop, speech deficit - Skin Skin exam: Present: dry, intact Internal Medicine: Result - Labs CBC & Chem 7: 06/19/17 12:39 06/19/17 12:39 Labs: Short CBC 06/18/17 Range/Units 14:36 WBC 7.6 (4.3-11.1) K/mcL Hgb 10.2 L (11.5-15.4) g/dL Hct 33.3 L (35.3-44.9) % Plt Count 274 (140-400) K/mcL Neutrophils # 5.0 (1.6-8.9) K/mcL BMP 06/18/17 14:36 Sodium 133 L Potassium 3.2 L Chloride 96 L Carbon Dioxide 30 H BUN 13 Creatinine 0.84 Glucose 95 Calcium 8.9 - ABG Interpretation ABG results: PT/INR, D-dimer PT 12.2 Seconds (9.4-12.1) H 06/16/17 00:13 - VTE Documentation of Mechanical Device: Graduated compression elastic hosiery Consult Discharge Plan - Plan Referrals: Shmuel Leggett MD [Primary Care Provider] -
[2017-06-19 12:50] LABS: Basophils % 0.3 %; Eosinophils # 0.1 K/mcL (0.0-0.6); Eosinophils % 1.5 %; Hematocrit 36.3 % (35.3-44.9); Immature Granulocytes % 0.1 % (0-4); Lymphocytes % 27.8 %; Mean Corpuscular HGB Conc 30.3 g/dL (31.6-35.5); Mean Corpuscular Hemoglobin 24.9 pg (28.0-33.3); Mean Corpuscular Volume 82.1 fL (83.0-100.0); Mean Platelet Volume 9.9 fL (9.4-12.4); Monocytes # 0.5 K/mcL (0.0-1.3); Neutrophils # 4.6 K/mcL (1.6-8.9); Platelet Count 314 K/mcL (140-400); Red Blood Count 4.42 M/mcL (3.82-4.97); Red Cell Distribution Width 15.7 % (11.5-14.5); Segmented Neutrophils % 63.3 %
[2017-06-19 13:07] LABS: BUN/Creatinine Ratio 15 (6-26); Blood Urea Nitrogen 14 mg/dL (8-23); Calcium 9.1 mg/dL (8.6-10.3); Carbon Dioxide 27 mEq/L (23-29); Chloride 99 mEq/L (98-107); Glucose 109 mg/dL (70-105); Osmolality,Calculated 279 (280-300); Potassium 3.9 mEq/L (3.5-5.1); Sodium 134 mEq/L (136-145); eGFR For African Americans > 60 (> 60); eGFR For Non-African Americans 58 (> 60)
[2017-06-19] MEDS: Acetaminophen 325 MG TABLET PO PRN (13:30)
[2017-06-19 15:32] VITALS: BP 131/52
--- NOTE | 2017-06-19 16:07 | Discharge Summary ---
Date of Encounter: 06/19/17 Time of Encounter: 15:58 - Discharge Diagnosis (1) Sepsis Priority: Primary Status: Resolved Qualifiers: Sepsis type: sepsis due to unspecified organism Qualified Code(s): A41.9 - Sepsis, unspecified organism (2) UTI (urinary tract infection) Priority: Secondary Status: Resolved Qualifiers: Urinary tract infection type: acute cystitis Hematuria presence: without hematuria Qualified Code(s): N30.00 - Acute cystitis without hematuria (3) Essential hypertension Priority: Secondary Status: Chronic (4) Diabetes mellitus Priority: Secondary Status: Chronic Qualifiers: Diabetes mellitus type: type 2 Diabetes mellitus complication status: without complication Diabetes mellitus fdc insulin use: without fdc use Qualified Code(s): E11.9 - Type 2 diabetes mellitus without complications (5) Elevated troponin Priority: Secondary Status: Acute (6) DVT prophylaxis Priority: Secondary Status: Acute - Discharge Medications Prescriptions: cephALEXin [Keflex] 500 mg PO BID #14 capsule Home Medications: Amlodipine Besylate 10 mg PO DAILY 04/29/17 [History] Atorvastatin [Lipitor] 40 mg PO HS 04/29/17 [History] Cyclobenzaprine [Flexeril] 5 mg PO HS PRN 04/29/17 [History] Ferrous Sulfate 325 mg PO DAILY 04/29/17 [History] Indapamide [Lozol] 1.25 mg PO DAILY 04/29/17 [History] Loratadine [Allergy Relief] 10 mg PO DAILY 04/29/17 [History] Losartan Potassium [Cozaar] 100 mg PO DAILY 04/29/17 [History] Metformin HCl [Metformin HCl ER] 500 mg PO BID 04/29/17 [History] Metoprolol XL (24 HR) Succ [Toprol Xl] 100 mg PO BID 04/29/17 [History] Omeprazole [PriLOSEC] 20 mg PO BID 04/29/17 [History] Potassium Chloride 20 meq PO DAILY 04/29/17 [History] Venlafaxine HCl [Venlafaxine HCl ER] 75 mg PO DAILY 04/29/17 [History] Aspirin 81 mg PO DAILY tab.chew 06/19/17 [Rx] cephALEXin [Keflex] 500 mg PO BID #14 capsule 06/19/17 [Rx] Allergies/Adverse Reactions: 3 Allergy/AdvReac Type Severity Reaction Status Date / Time TYRONE Inhibitors Allergy Swelling Verified 04/29/17 11:31 of Lip/Tongue/Throat Amoxicillin Allergy Itching Verified 04/29/17 11:31 codeine Allergy Vomiting Verified 04/29/17 11:31 enalapril Allergy Anaphylaxis Verified 04/29/17 11:31 nitrofurantoin Allergy Rash Verified 04/29/17 11:31 [From Macrobid] Sulfa (Sulfonamide Allergy Rash Verified 04/29/17 11:31 Antibiotics) Procedures/tests Complete & Pending: Procedures Performed prior 72 hours Category Date Time Status EV echocardiogram Routine Y 06/17/17 03:18 Completed Date of admission: 06/16/17 02:29 Primary care physician: Shmuel Leggett MD Discharging clinician: Edmund Subramanian - Patient Status Disposition: Home, Self-Care Condition: Good Functional capacity at discharge: independent ambulation Overall status at discharge: patient is back to baseline - Discharge Instructions Follow Up With: Shmuel Leggett MD [Primary Care Provider] - - Diet and Activity Activity: increase activity as tolerated Diet: advance to your usual diet Hospital course: Ms. Kate is a 81 year old female patient with a past medical history of diabetes mellitus, essential hypertension, status post permanent pacemaker presented to the ER with complaints of nausea, fever along with chills and rigors. Symptoms began 2 days back with nausea. She went to urgent care this morning and was told that she had urinary tract infection and prescribed Macrobid. She is allergic to Macrobid but did take it yesterday evening and went to bed. She woke up with rigors and decided to come to the ER. She does describe mild suprapubic pain and dysuria. Patient had urinalysis consistent with UTI with dysuria. Shehad leukocytosis of 14.6 on admission, febrile, and tachycardic. Lactic acid was elevated at 3.2. Troponin was 0.2 and peaked to 0.36 and came down. She did not have chest pain. Urine and blood cultures were obtained. She was started on Rocphin and monitored closely. Given IV fluids. Lactic acid normalized. Leukocytosis and tachycardia resolved. She was afebrile. Blood cultures and urine cultures had no growth after 3 days. Patient was not septic and was discharged home in stable condition to complete Keflex for additonal 7 days. - Time Spent with Patient Total time spent providing and/or coordinating discharge services: - Constitutional Vitals: Temp Pulse Resp BP Pulse Ox 98.2 F 65 18 131/52 96 06/19/17 15:32 06/19/17 15:32 06/19/17 15:32 06/19/17 15:32 06/19/17 15:32 General appearance: Present: cooperative, A&O X 3, no acute distress, answers questions appropriately - Head Head exam: Present: atraumatic, normocephalic - Eye Eye exam: Present: PERRL, conjuntiva pink, sclera anicteric Pupils: Present: PERRL - Neck Neck exam general surgery: Present: supple, trachea midline. Absent: lymphadenopathy - Respiratory Respiratory exam: Present: CTAB. Absent: accessory muscle use, rales, rhonchi, wheezes - Cardiovascular Cardiovascular exam: Present: RRR, +S1, +S2. Absent: diastolic murmur, gallop, rubs, systolic murmur - GI/Abdominal GI/Abdominal exam: Present: normal bowel sounds, soft, no peritoneal signs. Absent: distended, tenderness - Extremities Exam Extremities exam: Present: warm, radial pulses palpable and symmetrical. Absent : calf tenderness, cyanotic, pedal edema - Neurological Exam Neurological exam: Present: CN II-XII intact, oriented X3, no focal deficits. Absent: pronater drift, facial droop, speech deficit - Skin Skin exam: Present: dry, intact - VTE Documentation of Mechanical Device: Graduated compression elastic hosiery
== END 2017-06-19 18:45 | disposition home or self-care (01) | DRG 872 ==
LOC: EMEROO 23:50 → 2NENU 23:50
PROVIDERS: ADMIT Internal Medicine Hematology & Oncology; ATTEND Internal Medicine